=== PATIENT | male | born 1955 | race Caucasian/White ===

== ENCOUNTER → 2017-01-06 | Outpatient (CLI) | payer BC ==
--- NOTE | 2017-01-06 09:10 | US ---
EXAMINATION TYPE: US bladder DATE OF EXAM: 01/06/2017 COMPARISON: NONE CLINICAL HISTORY: 17-year-old male R39.12 poor stream of urine. Slow urine stream, frequent urination . TECHNIQUE: Multiple sonographic images of the bladder were obtained. FINDINGS: Bladder is initially urine distended. Both ureteral jets are visualized. Post Void Residual Volume: 44.5 mL IMPRESSION: Borderline elevated residual volume of 45 mL in the bladder after voiding.
--- NOTE | 2017-01-06 12:06 | US ---
EXAMINATION TYPE: US prostate transrectal DATE OF EXAM: 01/06/2017 COMPARISON: NONE CLINICAL HISTORY: R39.12 poor urinary stream. Slow urine stream, frequent urination This examination was performed using the transrectal probe. EXAM MEASUREMENTS: Gland Size: 5.3 x 3.7 x 5.2 Volume: 53.0 Predicted PSA: 6.36 Actual PSA (if available):PSA drawn on Friday01/03/17, results not back for ultrasound on 01/06/17, m ost recent PSA was 2.6 in August 2015 Enlarged heterogeneous gland without any definite lesions seen by ultrasound at this time Seminal vesicles are normal in size. Prostate gland is enlarged in size without suspicious hypoechoic nodules seen. IMPRESSION: Prostate gland is enlarged in size consistent with BPH, no worrisome hypoechoic nodule i s evident.
== END ==
LOC: RADUSMAIN 07:43
PROVIDERS: ATTEND Physician Assistant
DX: N40.0 Benign prostatic hyperplasia without lower urinary tract symptoms (principal); R39.12 Poor urinary stream
CPT/HCPCS: 76857; 76872

== ENCOUNTER → 2017-01-08 | Outpatient (CLI) | payer BC ==
--- NOTE | 2017-01-08 17:59 | PN ---
PROGRESS NOTE DATE OF SERVICE: 01/08/2017 A 61-year-old gentleman has [facility] of obstructive sleep apnea-hypopnea syndrome. Patient successfully continued to use his CPAP equipment every night without significant problems related to the mask pressure or humidity. His sleep schedule from around 10 to 10:30 p.m. until 5:30 am, which is about 7 hours and then he usually wakes up in the morning by himself without alarm and that is kind of sleep schedule, which he is using too. Sometimes he takes some naps in the middle of the day of the day. [place] Sleepiness Scale increased significantly to but that is possibly also related to the situation that the patient stopped working for the last year. Working less time and subsequently may take more naps than before. No episodes of hyperglycemia for the last year. No any recent episodes of cardiac arrhythmia. I checked his CPAP unit. CPAP pressure is 7, usage over the machine is every night for more than 4 hours. Average usage is 7.1 hour. MEDICATIONS: None. The weight is about the same as last year. Up to 1 pounds from 172 pounds up to 173 pounds today. PHYSICAL EXAM: Patient in no distress. BP 128/72, HR 63, RR 16, height 5 feet 9 inches and one half, weight 173.6, BMI 25.1, temperature 97.0. Oxygen saturation on room air 96%. Oropharynx low position of soft palate. Neck Supple, no JVD. Thyroid is not palpable. LUNGS Clear to percussion and to auscultation. Good air exchange. No wheezing or rhonchi. HEART S1, S2 regular. No murmurs, gallops, or rubs. ABDOMEN Soft and nontender. Bowel sounds are present. No organomegaly appreciated. EXTREMITIES No clubbing or cyanosis. 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 Cranial nerves 2 to 7 intact. There is no fasciculation or atrophy. noted. No focal deficits observed. IMPRESSION: 1. Obstructive sleep apnea-hypopnea syndrome. The patient demonstrated 100% compliance with treatment. No snoring on the machine, benefitting from treatment. 2. Excessive daytime sleepiness by [place] Sleepiness Scale. Patient sleeps around 7 hours per night. I believe it may not be enough for him. 3. Hyperlipidemia. 4. History of hyperglycemia in the past. No recent episodes. 5. History of bradycardia episodes in the past, not any recent episodes. PLAN: 1. Continue treatment with CPAP at the same pressure every night for the whole night. 2. Prescription for all necessary CPAP supplies. 3. Sleep hygiene with regular time bed for 8 hours which is 1 hour more than he is sleeping now at night. 4. No driving if feeling sleepiness. Thank you very much for allowing me to participate in the management of your patient. Sincerely, GIL / IJN: [id number] /
== END | disposition home or self-care (01) ==
LOC: SLEEP 15:55
PROVIDERS: ATTEND Internal Medicine
DX: G47.33 Obstructive sleep apnea (adult) (pediatric) (principal); G47.10 Hypersomnia, unspecified; E78.5 Hyperlipidemia, unspecified; Z86.79 Personal history of other diseases of the circulatory system; Z86.39 Personal history of other endocrine, nutritional and metabolic disease

== ENCOUNTER 2017-09-01 09:47 | Emergency (ER) | payer BC ==
[2017-09-01 10:03] VITALS: BP 164/103; PULSE 84; RESP 18; TEMP 98.2
[2017-09-01] MEDS ORDERED: LIDOCAINE 1% INJ 10MG/ML (20 ML MDV) SQ ONE (10:26)
--- NOTE | 2017-09-01 11:04 | ED ---
General Adult HPI - General Chief complaint: Wound/Laceration Stated complaint: thumb lac Time Seen by Provider: 09/01/17 10:10 Source: patient Mode of arrival: ambulatory Limitations: no limitations - History of Present Illness Initial comments: Patient is a 62-year-old male who presents with a chief complaint of a laceration to the left thumb. The patient states this happened a half hour prior to arrival when he accidentally cut his hand on a table saw. The patient states that his pain is about a 4. He is able to move his thumb and has intact sensation. The patient states he is up-to-date on his tetanus status, stating that he last received a tetanus shot for 5 years ago. The patient denies other medical problems. He has no other complaints at this time. - Related Data Previous Rx's Medication Instructions Recorded Amoxic-Pot Clav 875-125Mg 1 tab PO Q12HR #14 tablet 09/01/17 [Augmentin 875-125] Ibuprofen [Motrin] 800 mg PO TID PRN #20 tab 09/01/17 Allergies Allergy/AdvReac Type Severity Reaction Status Date / Time No Known Allergies Allergy Verified 09/01/17 10:10 Review of Systems ROS Statement: Those systems with pertinent positive or pertinent negative responses have been documented in the HPI. ROS Other: All systems not noted in ROS Statement are negative. Past Medical History Past Medical History: No Reported History History of Any Multi-Drug Resistant Organisms: None Reported Past Surgical History: No Surgical Hx Reported Past Psychological History: No Psychological Hx Reported Smoking Status: Never smoker Past Alcohol Use History: Occasional Past Drug Use History: None Reported General Exam Limitations: no limitations General appearance: alert, in no apparent distress Head exam: Present: atraumatic, normocephalic Eye exam: Present: normal appearance ENT exam: Present: mucous membranes moist Neck exam: Present: normal inspection Respiratory exam: Present: normal lung sounds bilaterally. Absent: respiratory distress, wheezes Cardiovascular Exam: Present: regular rate, normal rhythm GI/Abdominal exam: Present: soft. Absent: distended, tenderness Rectal exam: Present: deferred Extremities exam: Present: other (Patient has an abrasion to the medial aspect of his left thumb, there is a linear laceration on the pad of his left thumb. Bleeding is controlled at this time. Patient has intact strength and sensation of the thumb.) Back exam: Present: normal inspection Neurological exam: Present: alert, oriented X3 Psychiatric exam: Present: normal affect, normal mood Skin exam: Present: warm, dry, intact Course Vital Signs 09/01/17 10:00 Temperature 98.2 F Pulse Rate 84 Respiratory 18 Rate Blood Pressure 164/103 O2 Sat by Pulse 99 Oximetry Procedures - Laceration Laceration #1 Consent Obtained: verbal consent Time Out Performed: Yes Indication: laceration Site: hand Description: linear, flap, avulsion Depth: simple, single layer Anesthetic Used: lidocaine 1% Anesthesia Technique: nerve block Pre-repair: wound explored, irrigated extensively Type of Sutures: nylon Size of Sutures: 4-0 Number of Sutures: 3 Technique: simple, interrupted Patient Tolerated Procedure: well, no complications Additional Comments: wound loosely approximated with free flap open at tip of avulsion 2/2 loss of tissue. bleeding controlled, abx ointment applied, gelfoam applied, tube gauze applied. Medical Decision Making - Medical Decision Making Patient presents with a chief complaint of a laceration of the thumb. On initial evaluation, vital signs are stable, patient no acute distress. Patient to be evaluated with an x-ray of the hand. 12:25 PM X-rays show no involvement of the bone. Laceration was repaired per procedure note. Patient was given explicit signs and symptoms that should prompt return visit to the emergency department. He'll be placed on Augmentin and given orthopedic follow-up. Patient was instructed to leave the Gelfoam in place for 5 days, have stitches removed in 7 days. Patient verbalizes understanding of instructions. This time he is stable for discharge. Disposition Clinical Impression: Laceration Disposition: HOME SELF-CARE Condition: Good Is patient prescribed a controlled substance at d/c from ED?: No Referrals: Trevin Townsend DO [Primary Care Provider] - 1-2 days Raphael Valdivia MD [STAFF PHYSICIAN] - 1-2 days
[2017-09-01] MEDS ORDERED: GELATIN SPONGE,ABSORB (SMALL) 1 EACH SPONGE TOPICAL STA (11:31)
--- NOTE | 2017-09-01 11:35 | XR ---
EXAMINATION TYPE: XR hand limited LT DATE OF EXAM: 09/01/2017 CLINICAL HISTORY: Left distal thumb injury with a table saw. TECHNIQUE: Frontal, lateral and oblique images of the left hand are obtained. COMPARISON: None. FINDINGS: There is no acute fracture/dislocation evident in the left hand. Soft tissue defect and sw elling are seen at the ulnar aspect of the distal first phalanx without radiopaque foreign body or un derlying osseous fracture. The joint spaces in the left hand demonstrate moderate arthropathy with sm all marginal osteophytes of the first metacarpal phalangeal joint and distal interphalangeal joints a s well as the first carpometacarpal joint in addition to sclerosis and joint space narrowing. IMPRESSION: There is no acute fracture or dislocation in the left hand. Soft tissue swelling and foc al laceration of the distal first digit without radiopaque foreign body or underlying fracture.
== END 2017-09-01 13:08 | disposition home or self-care (01) ==
LOC: EC 09:47
DX: S61.012A Laceration without foreign body of left thumb without damage to nail, initial encounter (principal); W31.2XXA Contact with powered woodworking and forming machines, initial encounter; Y92.009 Unspecified place in unspecified non-institutional (private) residence as the place of occurrence of the external cause
CPT/HCPCS: 73120; 99283; 12001; J2001

== ENCOUNTER 2017-11-04 16:28 | Observation (INO) | payer BC ==
[2017-11-04] MEDS ORDERED: NITROGLYCERIN OINT 1 INCH/GM PACKET TOPICAL STA (17:16)
[2017-11-04] MEDS ORDERED: ASPIRIN 81 MG PO STA (17:16)
[2017-11-04 17:52] LABS: Basophils % (A) 1 %; Eosinophils # (A) 0.3 k/uL (0-0.7); Eosinophils % (A) 4 %; HCT 42.9 % (39.0-53.0); HGB 14.7 gm/dL (13.0-17.5); Lymphocytes # (A) 1.8 k/uL (1.0-4.8); Lymphocytes % (A) 23 %; MCH 30.9 pg (25.0-35.0); MCHC 34.2 g/dL (31.0-37.0); MCV 90.2 fL (80.0-100.0); Mean Platelet Volume 6.1; Monocytes # (A) 0.3 k/uL (0-1.0); Monocytes % (A) 4 %; Neutrophils # (A) 5.2 k/uL (1.3-7.7); Neutrophils % (A) 66 %; Platelet Count 223 k/uL (150-450); RBC 4.76 m/uL (4.30-5.90); RDW 12.5 % (11.5-15.5); WBC 7.8 k/uL (3.8-10.6)
[2017-11-04 18:00] LABS: ALT 39 U/L (21-72); AST 34 U/L (17-59); Albumin 4.6 g/dL (3.5-5.0); Alkaline Phosphatase 73 U/L (38-126); Anion Gap 11 mmol/L; Blood Urea Nitrogen 23 mg/dL (9-20); Calcium 9.6 mg/dL (8.4-10.2); Carbon Dioxide 24 mmol/L (22-30); Chloride 106 mmol/L (98-107); Glucose 85 mg/dL (74-99); Magnesium 2.1 mg/dL (1.6-2.3); Partial Thromboplastin Time 24.5 sec (22.0-30.0); Potassium 4.7 mmol/L (3.5-5.1); Sodium 141 mmol/L (137-145); Total Bilirubin 0.5 mg/dL (0.2-1.3); Total Protein 7.2 g/dL (6.3-8.2)
[2017-11-04 18:03] LABS: Creatine Kinase 126 U/L (55-170)
[2017-11-04 18:16] LABS: Creatine Kinase MB 1.6 ng/mL (0.0-2.4); Troponin I <0.012 ng/mL (0.000-0.034)
--- NOTE | 2017-11-04 19:03 | XR ---
EXAMINATION: XR chest 2V DATE AND TIME: 11/04/2017 6:54 PM ORDERING PROVIDER: Billy Sykes MD CLINICAL INDICATION: Chest Pain TECHNIQUE: PA and lateral COMPARISON: None. DESCRIPTION: The lungs are clear. The pleural spaces are negative. The cardiac silhouette is not enlarged. The mediastinal and pleural silhouettes are unremarkable. The skeletal structures are intact without focal findings. The soft tissues are unremarkable. IMPRESSION: NO ACUTE PROCESS.
--- NOTE | 2017-11-04 19:12 | ED ---
Chest Pain HPI - General Chief Complaint: Chest Pain Stated Complaint: abn EKG Time Seen by Provider: 11/04/17 16:53 Source: patient Mode of arrival: ambulatory Limitations: no limitations - History of Present Illness Initial Comments: 62 years old male [facility] to the hospital for admission. His clearing ruiz today he developed chest pain he presents the chest pain went away then he went back to splitting wood again chest pain came back at that point his family took him to the [facility] she has no history of heart disease in the past and he denies any chest pain now denies any shortness of breath is chest pain-free and has no diabetes, hypertension or cerebral family history of heart disease review of system is unremarkable - Related Data Home Medications Medication Instructions Recorded Confirmed Aspirin 325 mg PO ONCE PRN 11/04/17 11/04/17 Allergies Allergy/AdvReac Type Severity Reaction Status Date / Time No Known Allergies Allergy Verified 11/04/17 17:48 Review of Systems ROS Statement: Those systems with pertinent positive or pertinent negative responses have been documented in the HPI. ROS Other: All systems not noted in ROS Statement are negative. EKG Findings - EKG Comments: EKG Findings:: EKG is sinus bradycardia ventricular rate is 54 PA interval is 184 QRS duration is 120 QT/QTc is 448/424 review of this EKG does not reveal any ST elevation or ST depression Past Medical History Past Medical History: No Reported History History of Any Multi-Drug Resistant Organisms: None Reported Past Surgical History: Orthopedic Surgery Past Psychological History: No Psychological Hx Reported Smoking Status: Never smoker Past Alcohol Use History: Occasional Past Drug Use History: None Reported General Exam - General Exam Comments Initial Comments: General: The patient is awake and alert, in no distress, and does not appear acutely ill. Skin: Skin is warm and dry and no rashes or lesions are noted. Eye: Pupils are equal, round and reactive to light, extra-ocular movements are intact; there is normal conjunctiva bilaterally. Ears, nose, mouth and throat: There are moist mucous membranes and no oral lesions. Neck: The neck is supple, there is no tenderness or JVD. Cardiovascular: There is a regular rate and rhythm. No murmur, rub or gallop is appreciated. Respiratory: To auscultation bilateral, no wheezing no rhonchi no distress respiratory davies noticed Gastrointestinal: Soft, non-distended, non-tender abdomen without masses or organomegaly noted. There is no rebound or guarding present. Bowel sounds are unremarkable. Back: There is no tenderness to palpation in the midline. There is no obvious deformity. Musculoskeletal: Normal ROM, no tenderness, There is no pedal edema. There is no calf tenderness or swelling. No cords were appreciated. Neurological: CN II-XII intact, Cranial nerves III through XII are intact. There are no obvious motor or sensory deficits. Coordination appears grossly intact. Speech is normal. Psychiatric: Cooperative, appropriate mood & affect, normal judgment. Limitations: no limitations Course Vital Signs 11/04/17 11/04/17 11/04/17 16:54 17:56 18:10 Temperature 97.3 F L Pulse Rate 60 64 60 Respiratory 18 18 18 Rate Blood Pressure 154/85 169/82 136/93 O2 Sat by Pulse 98 97 99 Oximetry This EKG, CBC, comp his metabolic panel, troponin are unremarkable. Definitely has angina he needed to be admitted with a cardiology consult Disposition Clinical Impression: Chest pain Disposition: ADMITTED IP TO THIS HOSP Condition: Good Referrals: Trevin Townsend DO [Primary Care Provider] - 1-2 days
[2017-11-04] MEDS ORDERED: MORPHINE SULFATE 2 MG/ML SYRINGE IVP PRN (19:13)
[2017-11-04] MEDS ORDERED: ACETAMINOPHEN TAB 325 MG TAB PO PRN (19:13)
[2017-11-04] MEDS ORDERED: NITROGLYCERIN SL TABS 0.4 MG TAB SUBLINGUAL PRN (19:13)
[2017-11-04] MEDS ORDERED: HEPARIN SODIUM,PORCINE 5,000 UNIT/ML 1 ML VIAL IV ONE (19:13)
[2017-11-04] MEDS ORDERED: HEPARIN SOD,PORK IN 0.45% NACL 25,000 UNIT in 0.45% NACL 1 500ML.BAG IV SCH (19:15)
[2017-11-04 23:48] LABS: Creatine Kinase 113 U/L (55-170)
[2017-11-05 00:02] LABS: Creatine Kinase MB 1.5 ng/mL (0.0-2.4); Troponin I <0.012 ng/mL (0.000-0.034)
[2017-11-05 02:40] LABS: Cholesterol 240 mg/dL (<200); HDL Cholesterol 41 mg/dL (40-60); LDL Cholesterol,Calculated 159 mg/dL (0-99); Triglycerides 198 mg/dL (<150)
[2017-11-05 06:37] LABS: Creatine Kinase 96 U/L (55-170)
[2017-11-05 06:49] LABS: Creatine Kinase MB 1.5 ng/mL (0.0-2.4); Troponin I <0.012 ng/mL (0.000-0.034)
--- NOTE | 2017-11-05 07:52 | P.CRDCN ---
History of Present Illness Consult date: 11/05/17 Chief complaint: Chest discomfort History of present illness: This is a pleasant 62-year-old gentleman with no significant past medical history of coronary artery disease or diabetes or hypertension or dyslipidemia was referred directly to the emergency room yesterday because of chest discomfort. The patient came in to see me in the office as an outpatient for new onset chest discomfort. He was in his usual state of health until yesterday when he was doing some work in his backyard and he started experiencing discomfort in the mid of the chest as a sharp kind of discomfort without any radiation to the arm or neck or shoulders but it was associated with sweating. No shortness of breath. No dizziness or lightheadedness. And no syncope. He stopped working and the pain did go away. After he started working again the pain started pulling up again on him. Then he stopped working and the pain didn't go away. H episode of discomfort lasted about 10 minutes only. Because of that he called his primary care physician who saw the patient and perform an EKG which showed sinus rhythm was RBBB and the patient was referred to see me because of that. He was ruled out for acute coronary event. The EKG continues to show sinus rhythm without any ischemic ST or T-wave abnormalities. The chest x-ray did not show any acute abnormalities as well. The patient continues to be pain- free during his hospitalization. Past Medical History Past Medical History: Prostate Disorder History of Any Multi-Drug Resistant Organisms: None Reported Past Surgical History: Orthopedic Surgery Additional Past Surgical History / Comment(s): torn menicus in left knee - dr mason several years ago Past Anesthesia/Blood Transfusion Reactions: No Reported Reaction Past Psychological History: No Psychological Hx Reported Smoking Status: Never smoker Past Alcohol Use History: Occasional Past Drug Use History: None Reported - Past Family History Father Family Medical History: Myocardial Infarction (MS) Brother(s) Family Medical History: Coronary Artery Disease (CAD) Additional Family Medical History / Comment(s): 4 stents Medications and Allergies Home Medications Medication Instructions Recorded Confirmed Type Aspirin 325 mg PO ONCE PRN 11/04/17 11/04/17 History Allergies Allergy/AdvReac Type Severity Reaction Status Date / Time No Known Allergies Allergy Verified 11/04/17 17:48 Physical Exam Vitals: Vital Signs Temp Pulse Pulse Resp BP BP Pulse Ox 11/05/17 04:00 51 L 16 08/08/18 03:42 97.5 F L 56 L 16 122/53 98 11/04/17 22:44 55 L 16 11/04/17 22:27 97.8 F 53 L 16 141/90 97 11/04/17 21:43 97.9 F 72 18 137/91 99 11/04/17 19:08 97.2 F L 53 L 18 150/93 97 11/04/17 18:10 60 18 136/93 99 11/04/17 17:56 64 18 169/82 97 11/04/17 16:54 97.3 F L 60 18 154/85 98 Intake and Output 11/04/17 11/05/17 11/05/17 22:59 06:59 14:59 Other: Voiding Method Toilet Toilet # Voids 3 Weight 77.111 kg - Constitutional General appearance: no acute distress - Respiratory Respiratory: bilateral: CTA - Cardiovascular Rhythm: regular Heart sounds: normal: S1, S2 Results 11/04/17 17:35 11/04/17 17:35 Cardiac Enzymes 11/04/17 11/04/17 11/04/17 Range/Units 17:35 17:35 23:12 AST 34 (17-59) U/L CK-MB (CK-2) 1.6 1.5 (0.0-2.4) ng/mL Troponin I <0.012 <0.012 (0.000-0.034) ng/mL 11/05/17 Range/Units 05:35 AST (17-59) U/L CK-MB (CK-2) 1.5 (0.0-2.4) ng/mL Troponin I <0.012 (0.000-0.034) ng/mL Coagulation 11/04/17 11/04/17 11/05/17 Range/Units 17:35 23:12 05:35 PT 10.0 (9.0-12.0) sec APTT 24.5 76.1 H 62.6 H (22.0-30.0) sec Lipids 11/04/17 Range/Units 17:35 Triglycerides 198 H (<150) mg/dL Cholesterol 240 H (<200) mg/dL HDL Cholesterol 41 (40-60) mg/dL CBC 11/04/17 Range/Units 17:35 WBC 7.8 (3.8-10.6) k/uL RBC 4.76 (4.30-5.90) m/uL Hgb 14.7 (13.0-17.5) gm/dL Hct 42.9 (39.0-53.0) % Plt Count 223 (150-450) k/uL Comprehensive Metabolic Panel 11/04/17 Range/Units 17:35 Sodium 141 (137-145) mmol/L Potassium 4.7 (3.5-5.1) mmol/L Chloride 106 (98-107) mmol/L Carbon Dioxide 24 (22-30) mmol/L BUN 23 H (9-20) mg/dL Creatinine 0.90 (0.66-1.25) mg/dL Glucose 85 (74-99) mg/dL Calcium 9.6 (8.4-10.2) mg/dL AST 34 (17-59) U/L ALT 39 (21-72) U/L Alkaline Phosphatase 73 (38-126) U/L Total Protein 7.2 (6.3-8.2) g/dL Albumin 4.6 (3.5-5.0) g/dL Current Medications Generic Name Dose Route Start Last Admin Trade Name Freq PRN Reason Stop Dose Admin Acetaminophen 650 mg 11/04/17 19:13 Tylenol Tab PO Q4HR PRN Pain Aspirin 325 mg 11/05/17 09:00 Aspirin PO DAILY JIMMY Heparin Sodium/Sodium Chloride 500 mls @ 18.5 mls/hr 11/04/17 19:15 11/04/17 20:09 25,000 unit/ Sodium Chloride IV 12 units/kg/hr .Q24H JIMMY 18.5 mls/hr Administration Protocol 12 UNITS/KG/HR Morphine Sulfate 2 mg 11/04/17 19:13 Morphine Sulfate (Inj) IVP Q5M PRN Chest Pain Nitroglycerin 0.4 mg 11/04/17 19:13 Nitrostat SUBLINGUAL Q5M PRN Chest Pain Intake and Output 11/04/17 11/05/17 11/05/17 22:59 06:59 14:59 Other: Voiding Method Toilet Toilet # Voids 3 Weight 77.111 kg 11/04/17 17:35 11/04/17 17:35 Assessment and Plan Assessment: Assessment #1 chest discomfort #2 significant family history of CAD Plan #1 the patient was ruled out for acute coronary event #2 I am scheduling the patient to undergo a stress test later on today. Further recommendation to follow that. We'll continue following up with him
[2017-11-05 07:55] VITALS: RESP 18
[2017-11-05] MEDS ORDERED: ASPIRIN 325 MG TAB PO SCH (09:00)
--- NOTE | 2017-11-05 10:25 | NM ---
EXAMINATION TYPE: NM stress cardiolite complete DATE OF EXAM: 11/05/2017 COMPARISON: NONE HISTORY: 62-year-old male with chest pain and palpitations. TECHNIQUE: After the intravenous administration of 10.14 mCi Tc 99m Sestamibi - Rest images obtained 45 minutes post injection. The patient exercised using a SELVIN protocol and 1 minute prior to peak exercise was injected with 26.9 mCi Tc 99m Sestamibi - Stress images obtained 30 minutes post inject ion. FINDINGS: Targeted heart rate was achieved during performance of the study (patient reached 138 BPM with target heart rate being 135 BPM). The technologist notes that the patient experienced shortness of breath b ut no chest pain. Review of stress and rest SPECT images demonstrates decreased perfusion along the inferior wall with areas accentuated on the rest images, likely secondary to diaphragmatic attenuation. Otherwise, no di stinct perfusion abnormality. Gated analysis shows normal wall motion with an estimated left ventric ular ejection fraction of 67 %. TID is normal at 0.63. IMPRESSION: Decreased perfusion along the inferior wall is greater on rest imaging suggesting prominent diaphragm atic attenuation. No convincing scintigraphic evidence for reversible ischemia
[2017-11-05 12:32] VITALS: BP 119/74; PULSE 69; TEMP 97.7
--- NOTE | 2017-11-05 13:16 | EST ---
EXERCISE STRESS DATE OF SERVICE: 11/05/2017 AGE: 62 SEX: Male HT: 69" WT: 170 pounds PROTOCOL: CARDIOLITE SELVIN STAGE: ii DURATION OF EXERCISE: 6 minutes HEART RATE REST: 66 BLOOD PRESSURE REST: 120/86 MAXIMUM HEART RATE ACHIEVED: 138 MAXIMUM BLOOD PRESSURE: 170/59 85% MPHR: 135 100% MPHR: 159 METS: 7.3 INDICATIONS: Chest pain. CLINICAL INFORMATION: STRESS DATA: Pretesting physical examination showed a heart rate of 66, pressure is 120/86 mmHg. Baseline EKG showed sinus mechanism. The patient exercised on the treadmill according to Selvin protocol for a total of 6 minutes and achieved 7.3 METs. The max heart rate was 138, which is about 86% of maximum predicted heart rate. Maximum blood pressure was 170/59 mmHg. Clinically the patient did not have any symptoms of chest pain or discomfort and the EKG did not show any significant ST or T- wave abnormalities concerning for ischemia. CONCLUSION: 1. Excellent exercise tolerance. 2. Normal EKG in response to exercise. 3. Please follow up on the Cardiolite portion on separate report. MMODL / IJN: [id number] /
--- NOTE | 2017-11-05 14:40 | HP ---
HISTORY AND PHYSICAL DATE OF ADMISSION: 11/04/17 DATE OF SERVICE: 11/05/17 PRESENTING COMPLAINT: Chest pain. HISTORY OF PRESENTING COMPLAINT: A very pleasant 62-year-old patient of Dr. Townsend, rather in good health, rather active, was cutting wood with a chain saw weighing about 20 pounds. He did this activity for about 45 minutes. During the process he developed sharp central chest pain, sharp in nature, stabbing, lasted about 5 minutes and he had to take a break. Then after some time when he started doing it again, he got a second episode. Again sharp pain in the middle of the chest that lasted for longer time. The patient felt a bit short of breath, break out in a sweat. Did not feel tired. No dizziness or lightheadedness. Symptoms lasted for a good 10 to 15 minutes. He decided to stop cutting wood and decided to come in and was admitted with a diagnosis of unstable angina. Denies any cardiac risk factors, admitted for the same. The patient is otherwise rather active. REVIEW OF SYSTEMS: CONSTITUTIONAL: None. HEENT: None. RESPIRATORY: None. CARDIOVASCULAR: As above. GASTROINTESTINAL: None. GENITOURINARY: None. MUSCULOSKELETAL: As above. DERMATOLOGICAL, HEMATOLOGIC, LYMPHATIC: None. PSYCHIATRY: None. NEUROLOGICAL: None. PAST MEDICAL HISTORY: BPH. PAST SURGICAL HISTORY: Torn meniscus, left knee. SOCIAL HISTORY: Does not smoke. Alcohol occasionally. 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 Lives with . FAMILY HISTORY: Coronary artery disease, four stents. HOME MEDICATIONS: Aspirin p.r.n. ALLERGIES: None. PHYSICAL EXAMINATION: Temperature 98.1, pulse 47, respiratory 18, blood pressure 102/66, pulse ox 99% on room air. GENERAL APPEARANCE: Average build, lying in bed, comfortable. EYES: Pupils equal. Conjunctivae normal. HEENT: External appearance of nose and ears normal. Oral cavity normal. NECK: JVD not raised. Mass not palpable. RESPIRATORY: Effort normal. Lungs are clear. CARDIOVASCULAR: First and second sounds, no edema. ABDOMEN: Soft, nontender. Liver and spleen not palpable. LYMPHATIC: No lymph node palpable in neck or axillae. PSYCHIATRY: Alert and oriented x3. Mood and affect normal. NEUROLOGICAL: Pupils equal. Cranial nerves grossly intact. Power and sensation grossly intact. MUSCULOSKELETAL: Minimal reproducible pain in the sternum and patient's sternum has got excavation that is pectus excavatum. INVESTIGATIONS: Lab and x-rays were reviewed in the context of assessment and plan. White count 7.8, hemoglobin 14.7, potassium 4.7, BUN 20, creatinine 0.9. Troponin x3 0.012. LDL is 159. Chest x-ray film was interpreted by me; shows cardiomegaly, some nonspecific findings. EKG tracing interpreted by me shows normal sinus rhythm. ASSESSMENT: 1. Anterior chest wall pain in a patient who was using a chain saw. It was sharp pain, need to consider cardiac cause though this clearly could be musculoskeletal from costochondritis. The patient had some adjoining symptoms including short of breath with perspiration and also has a positive family history. 2. Pectus excavatum. This may cause the heart to look enlarged on a chest x-ray. 3. Benign prostatic hypertrophy. The patient is not on any medications. 4. Sinus bradycardia in a patient who is physiologically active. PLAN: Cardiology was consulted. Aspirin was started. They have ordered a stress test. MMODL / IJN: [id number] /
--- NOTE | 2017-11-06 06:59 | DS ---
DISCHARGE SUMMARY DATE OF ADMISSION: 11/04/17 DATE OF DISCHARGE: 11/05/17. FINAL DIAGNOSES: 1. Anterior chest wall pain probably musculoskeletal from costochondritis. 2. Pectus excavatum. 3. Benign prostatic hypertrophy. Patient not taking any medication. 4. Sinus bradycardia from physiological good health. HOSPITAL COURSE: This patient presented with chest pain, sharp in nature with physical activity. The patient did undergo a Cardiolite stress test. Seen by Dr. Jain. [place] it was not suggestive of ischemia. Hence, patient is being discharged. On exam, lungs are clear. Cardiovascular: 1st and 2nd sounds normal with pectus excavatum. On examination: Temperature 97.7, pulse 47, blood pressure 109/74. Lungs: Fair entry. Cardiovascular: 1st and 2nd sounds normal. DISCHARGE MEDICATIONS: 1. Aspirin 81 mg a day. 2. Lipitor 20 mg a day. Follow with Dr. Townsend in 1 week, follow with Dr. Jain on 11/01/17. Discussion and discharge planning more than 35 minutes. MMODL / IJN: [id number] /
== END 2017-11-05 14:44 | disposition home or self-care (01) ==
LOC: EC 16:28 → 3OBS 19:13
PROVIDERS: ADMIT Hospitalist; ATTEND Hospitalist
DX: R07.89 Other chest pain (principal); R61 Generalized hyperhidrosis; R06.02 Shortness of breath; N40.0 Benign prostatic hyperplasia without lower urinary tract symptoms; Q67.6 Pectus excavatum; R00.1 Bradycardia, unspecified; Z82.49 Family history of ischemic heart disease and other diseases of the circulatory system
CPT/HCPCS: 99285 ×2; 96365 ×2; 96366 ×5; 96376 ×2; 36415; 93005; 93017; 80061; 80053; 82550 ×2; 82553 ×2; 83735; 84484 ×2; 85025; 85610; 85730 ×2; 71046; 78452; G0378 ×2; A9500; J1644 ×2

== ENCOUNTER → 2018-10-22 | Outpatient (CLI) | payer OTHER ==
--- NOTE | 2018-10-22 12:40 | SFUN ---
SLEEP CENTER FOLLOW UP NOTE DATE OF SERVICE: 10/22/2018 A 63-year-old gentleman had been followed in Sleep Center for treatment of obstructive sleep apnea-hypopnea syndrome. Patient successfully continuing to use his CPAP equipment every night for the whole night. His mask is old, needs to be replaced. Sometimes has snoring with the machine, but I believe that related to the necessity to replace the mask. [place] Sleepiness Scale today is 6, which is normal. I checked patient's CPAP unit. CPAP pressure is 7 cm of water usage 29 out of 30 nights for more than 4 hours every 6.4 hours which is normal compliance. MEDICATIONS: Simvastatin. PHYSICAL EXAMINATION: During physical exam, patient in no distress. VITAL SIGNS: BP 115/78, HR 60, RR 16, height 5 feet 9 inches, weight 164 pounds, body mass index was 24.2, temperature 98.0, oxygen saturation on room air 98%. HEENT: PERRLA, EOMI. Oropharynx extremely low position of soft palate. Mallampati 4. NECK: Supple, no JVD. Thyroid is not palpable. LUNGS: Clear to percussion and to auscultation. Good air exchange. No wheezing or rhonchi. HEART: S1, S2 regular. No murmurs, gallops, or rubs. ABDOMEN: Soft and nontender. Bowel sounds are present. No organomegaly appreciated. EXTREMITIES: No clubbing or cyanosis. DUST SAMPLER: Awake, alert, and oriented X3. Cranial nerves 2 to 7 intact. There is no fasciculation or atrophy. noted. No focal deficits observed. IMPRESSION: 1. Obstructive sleep apnea-hypopnea syndrome. Patient demonstrated great compliance with treatment benefitting from treatment. 2. Hyperlipidemia. 3. History of PVCs. 4. History of hypoglycemia in the past. No recent episode. PLAN: 1. Prescription for all necessary CPAP supplies including full-face mask, heated tube, filters. 2. Patient to continue to use CPAP equipment every night for the whole night. 3. Watching weight. 4. Sleep hygiene with regular time in bed for at least 7-1/2 hours. 5. No driving if feeling sleepiness. 6. Followup visit in 1 year or earlier if patient has any problems. Thank you very much for allowing me to participate in management of your patient. Sincerely, Miguel Gonzalez MD, PhD, FAASM Diplomat of [place] Board of Medical Specialties [place] Board of Internal Medicine Safety Glass Installer of [facility] [place] MMSAVANAH / PATN: [id number] /
== END | disposition home or self-care (01) ==
LOC: SLEEP 10:36
PROVIDERS: ATTEND Internal Medicine
DX: G47.33 Obstructive sleep apnea (adult) (pediatric) (principal); E78.5 Hyperlipidemia, unspecified; Z86.79 Personal history of other diseases of the circulatory system; Z86.39 Personal history of other endocrine, nutritional and metabolic disease; Z79.899 Other long term (current) drug therapy; Z99.89 Dependence on other enabling machines and devices

== ENCOUNTER → 2019-09-16 | Outpatient (CLI) | payer OTHER ==
--- NOTE | 2019-09-16 17:44 | SFUN ---
SLEEP CENTER FOLLOW UP NOTE DATE OF SERVICE: 09/16/2019 This patient is a 64-year-old gentleman who has been followed in Sleep Center for treatment of obstructive sleep apnea-hypopnea syndrome. Patient is successfully continuing to use his CPAP equipment every night for the whole night. Occasionally he has very mild snoring, according to his . He sleeps well. [place] Sleepiness Scale is 8. I checked his CPAP unit. CPAP pressure is 6 cm of water. Usage is 27/30 nights for more than 4 hours. Average usage is 7.5 hours per night. His machine does not have information about apnea-hypopnea index. MEDICATIONS: Simvastatin. PHYSICAL EXAMINATION: GENERAL: A pleasant patient in no distress. VITAL SIGNS: BP 121/83, HR 88, RR 16, height 5 feet 9-1/2 inches, weight 174, body mass index 25.3, temperature 97.9, oxygen saturation at room air 96%. HEENT: PERRLA, EOMI. Evaluation of oropharynx showed tongue protrudes midline. Extremely low position of soft palate. Mallampati IV. NECK: Supple. No JVD. Thyroid is not palpable. LUNGS: Clear to percussion and to auscultation. Good air exchange. No wheezing or rhonchi. HEART: S1, S2 regular. No murmurs, gallops or rubs. ABDOMEN: Soft and nontender. Bowel sounds are present. No organomegaly. EXTREMITIES: No clubbing or cyanosis. MANUFACTURING MANAGER: Awake, alert, and oriented X3. Cranial nerves 2 to 7 intact. There is no fasciculation or atrophy. noted. No focal deficits observed. IMPRESSION: 1. Obstructive sleep apnea-hypopnea syndrome. The patient demonstrated good compliance with treatment, benefitting from treatment. 2. Hyperlipidemia. 3. History of premature ventricular contractions in the past. 4. History of hyperglycemia in the past. PLAN: 1. Patient will continue to use CPAP equipment every night for the whole night. 2. Prescription for all CPAP supplies, including Quattro Air medium-sized full-face mask, tube, filters. 3. Watching weight. 4. Sleep hygiene with regular time in bed for at least 7-1/2 hours. 5. No driving if feeling any sleepiness. Thank you very much for allowing me to participate in the management of your patient. Sincerely, Miguel Gonzalez MD, PhD, FAASM Diplomat of [place] [employer] of Medical Specialties [place] Board of Internal Medicine Academic Affairs Vice President of [facility] [place] MMSAVANAH / MARCY: [id number] /
== END | disposition home or self-care (01) ==
LOC: SLEEP 10:09
PROVIDERS: ATTEND Internal Medicine
DX: G47.33 Obstructive sleep apnea (adult) (pediatric) (principal); E78.5 Hyperlipidemia, unspecified; Z86.79 Personal history of other diseases of the circulatory system; Z86.39 Personal history of other endocrine, nutritional and metabolic disease; Z79.899 Other long term (current) drug therapy

== ENCOUNTER → 2020-09-14 | Outpatient (CLI) | payer OTHER ==
--- NOTE | 2020-09-14 23:15 | SFUN ---
SLEEP CENTER FOLLOW UP NOTE DATE OF SERVICE: 09/14/2020 65-year-old gentleman has been followed in the Sleep Center for treatment of obstructive sleep apnea-hypopnea syndrome. The last time I saw patient over 1 year ago, he continued to use his equipment every night for the whole night. Recently developed some problems related to the collection of water in the tube. [place] Sleepiness Scale today slightly increased to 11. The patient has episodes of occasional snoring. I checked CPAP unit. CPAP pressure is 6 cm of water. Usage is 100% of nights. Average 7.6 hours per night. Machine does not have information about apnea-hypopnea index and CPAP pressure is 6 cm of water. MEDICATIONS: Lipitor 20 mg once a day. PHYSICAL EXAMINATION: GENERAL: Patient in no distress. VITAL SIGNS: BP 126/79, HR 60, RR 14, height 5 feet 9 inches and one third, weight 171.8. Body mass index 25.0, temperature 96.1, oxygen saturation at room air 97%. Oropharynx: Extremely low position of soft palate. Mallampati 4. NECK: Supple, no JVD. Thyroid is not palpable. LUNGS: Clear to percussion and to auscultation. Good air exchange. No wheezing or rhonchi. HEART: S1, S2 regular. No murmurs, gallops, or rubs. ABDOMEN: Soft and nontender. Bowel sounds are present. No organomegaly appreciated. EXTREMITIES: No clubbing or cyanosis. ELECTRIC CUTTER OPERATOR: Awake, alert, and oriented X3. Cranial nerves 2 to 7 intact. There is no fasciculation or atrophy. noted. No focal deficits observed. IMPRESSION: 1. Obstructive sleep apnea-hypopnea syndrome. Patient demonstrated 100% compliance with treatment. Occasional snoring with the machine. Machine does not have information about apnea-hypopnea index. 2. Hyperlipidemia. 3. History of PVCs in the past. 4. History of hyperglycemia in the past. PLAN: 1. I increased pressure in CPAP unit to 7.4 cm of water. 2. Heated hose was not correctly connected with the CPAP unit. I explained to the patient how to connect it and subsequently after that, hose will be heated and prevent any condensation of water inside of the hose. Average person sometimes indicate which patient sometimes indicates. 3. Patient will continue to use PAP equipment every night for the whole night. 4. Sleep hygiene with regular time in bed for at least 7-1/2 to 8 hours. 5. Precautions related to driving. No driving if feeling sleepiness. 6. I will maintain all necessary prescription for PAP supplies including mask, tube, filters. 7. Watching weight. 8. Follow-up visit in 6 months or earlier if patient has any problems. Thank you very much for allowing me to participate in management of your patient. Sincerely, Miguel Gonzalez MD, PhD, FAASM Diplomat of [place] Board of Medical Specialties [place] Board of Internal Medicine Coiler of [facility] [place] MMODL / IJN: [id number] /
== END ==
LOC: SLEEP 09:43
PROVIDERS: ATTEND Internal Medicine
DX: G47.33 Obstructive sleep apnea (adult) (pediatric) (principal); E78.5 Hyperlipidemia, unspecified; Z86.79 Personal history of other diseases of the circulatory system; Z86.39 Personal history of other endocrine, nutritional and metabolic disease; Z99.89 Dependence on other enabling machines and devices

== ENCOUNTER → 2021-10-11 | Outpatient (CLI) | payer MEDICARE, OTHER ==
--- NOTE | 2021-10-11 14:42 | P.PN ---
Subjective DATE: 10/11/2021 FOLLOW UP VISIT. Patient with obstructive sleep apnea hypopnea syndrome return to sleep center for follow-up visit. Information from previous visit have been reviewed. Patient is using PAP equipment every night for the whole night, getting PAP supplies in time. The patient does not have significant problems with the mask, PAP unit and humidification. [place] sleepiness scale is increased to 17. I checked PAP unit. Pap unit is old, no information about apnea-hypopnea index. PAP unit pressure 7.4 cm H2O. Usage is 100 % for more then 4 hours, average 6.8 hours per night. MEDICATIONS:1. Lipitor 40 mg once a day During physical exam: GENERAL: A pleasant patient without any distress. VITAL SIGNS: BP 113/80, HR 57, RR 16 , weight 168.6, temperature 97, oxygen saturation at room air 97 % . HEENT: PERRLA, EOMI.low position of soft palate, Mallapati 4 . NECK: Supple. No JVD. LUNGS: Clear to percussion and to auscultation. Good air exchange. No wheezing or rhonchi. HEART: S1, S2 regular. ABDOMEN: Soft and nontender.[] EXTREMITIES: No clubbing or cyanosis. KNIFE OPERATOR: Awake, alert, and oriented x3. No focal deficit. Impressions: 1. Obstructive sleep apnea-hypopnea syndrome. Patient demonstrated great compliance with treatment, benefiting from treatment. CPAP unit is old, does not have information about apnea-hypopnea index. 2. History of PVCs. 3. History of hyperglycemia in the past. 4. Hyperlipidemia. Plan: 1. Continue using PAP equipment every night for the whole night. Prescription was written to replace CPAP unit to Auto PAP with range of pressure 5-10 cm of water. 2. To change air filter at least 1-2 times per month. 3. PAP unit should stay lower then position of the head. 4. Advised patient to remove all remaining water from humidifier canister daily and make it dry after each usage. Refill canister with fresh distilled water before each usage. 5. Sleep hygiene with regular time in bed for at least 8 hours. 6. Precautions related to driving. No driving if feel any sleepiness. 7. I will maintain prescription for PAP supplies including mask, tube, filters. 8. Follow up visit in 3090 days after getting new CPAP unit to evaluate clinical response on treatment, compliance with treatment and check apnea- hypopnea index .s. Thank you very much for allowing me to participate in the management of your patient. Miguel Gonzalez MD, PhD, FAASM. Diplomat of [place] Board of Sleep Medicine, Sleep Medicine Board by [place] Board of Internal Medicine Chiller Hand of [facility] [place]
== END ==
LOC: SLEEP 13:43
PROVIDERS: ATTEND Internal Medicine
DX: G47.33 Obstructive sleep apnea (adult) (pediatric) (principal); Z99.89 Dependence on other enabling machines and devices; E78.5 Hyperlipidemia, unspecified; Z86.39 Personal history of other endocrine, nutritional and metabolic disease

== ENCOUNTER → 2022-10-10 | Outpatient (CLI) | payer MEDICARE, OTHER ==
--- NOTE | 2022-10-10 11:24 | P.PN ---
Subjective DATE: 10/10/2022 FOLLOW UP VISIT. Patient with obstructive sleep apnea hypopnea syndrome return to sleep center for follow-up visit. Information from previous visit have been reviewed. Patient supposed to replace his CPAP unit, but for different reasons she still using his old CPAP unit and snore while using CPAP according to his . Patient is using PAP equipment every night for the whole night, getting PAP supplies in time. The patient does not have significant problems with the mask, PAP unit and humidification. [place] sleepiness scale is 18, which indicates significant sleepiness. I checked information from PAP unit. PAP unit pressure 7.4 cm H2O. Usage is 100 % for more then 4 hours, average 6.8 hours per night. CPAP unit doesn't have information about apnea-hypopnea index for leak. Unit is old, motor life expectancy was exceeded. MEDICATIONS:1. Lipitor 2. Medication for BPH, patient doesn't remember the name. During physical exam: GENERAL: A pleasant patient without any distress. VITAL SIGNS: BP 134/85, HR 66, RR 15, weight 169.8, temperature 98.3, oxygen saturation at room air 98 % . HEENT: PERRLA, EOMI.low position of soft palate, Mallapati 4 . NECK: Supple. No JVD. LUNGS: Clear to percussion and to auscultation. Good air exchange. No wheezing or rhonchi. HEART: S1, S2 regular. ABDOMEN: Soft and nontender.[] EXTREMITIES: No clubbing or cyanosis. MARKET RISK SPECIALIST: Awake, alert, and oriented x3. No focal deficit. Impressions: 1. Obstructive sleep apnea-hypopnea syndrome. Patient demonstrated great compliance with treatment, benefiting from treatment. CPAP unit is old. Snoring and sleepiness while using CPAP every night. 2. Hyperlipidemia. 3. BPH. 4. History of PVCs. Plan: 1. Continue using PAP equipment every night for the whole night. Prescription to replace CPAP unit to APAP with pressure 6-10 cm of water. 2. To change air filter at least 1-2 times per month. 3. PAP unit should stay lower then position of the head. 4. Advised patient to remove all remaining water from humidifier canister daily and make it dry after each usage. Refill canister with fresh distilled water before each usage. 5. Sleep hygiene with regular time in bed for at least 8 hours. 6. Precautions related to driving. No driving if feel any sleepiness. 7. I will maintain prescription for PAP supplies including mask, tube, filters. 8. Follow up visit in 1-2 months after patient received new CPAP unit. 9. Watching weight. Thank you very much for allowing me to participate in the management of your patient. Miguel Gonzalez MD, PhD, FAASM. Diplomat of [place] Board of Sleep Medicine, Sleep Medicine Board by [place] Board of Internal Medicine Algorithm Developer of [facility] [place]
== END ==
LOC: 3 N SLEEP 10:24
PROVIDERS: ATTEND Internal Medicine
DX: G47.33 Obstructive sleep apnea (adult) (pediatric) (principal); E78.5 Hyperlipidemia, unspecified; N40.0 Benign prostatic hyperplasia without lower urinary tract symptoms; Z86.79 Personal history of other diseases of the circulatory system; Z99.89 Dependence on other enabling machines and devices
CPT/HCPCS: 99212

== ENCOUNTER → 2023-09-11 | Outpatient (CLI) | payer MEDICARE, OTHER ==
[2023-09-11 10:36] VITALS: BP 123/83; PULSE 86; RESP 16; TEMP 98.1
--- NOTE | 2023-09-11 11:48 | P.PROGSL ---
Subjective DATE: 09/11/2023 FOLLOW UP VISIT. Patient with obstructive sleep apnea hypopnea syndrome return to sleep center for follow-up visit. Information from previous visit have been reviewed. Patient is using PAP equipment every night for the whole night, getting PAP supplies in time. Patient has occasional snoring on CPAP according to his . The patient does not have significant problems with the mask, PAP unit and humidification. [place] sleepiness scale is increased to 16. I checked information from PAP unit. PAP unit pressure 6-11, average 10.5 cm H2O. Usage is 100% for more then 4 hours, average 7 hours per night. Leak is 7.0 l/m, which is in acceptable range. Apnea Hypopnea Index is slightly increased to 6.3. MEDICATIONS: Please see below During physical exam: GENERAL: A pleasant patient without any distress. VITAL SIGNS: Please see below, weight 177 pounds. HEENT: PERRLA, EOMI.low position of soft palate, Mallapati 4 . NECK: Supple. No JVD. LUNGS: Clear to percussion and to auscultation. Good air exchange. No wheezing or rhonchi. HEART: S1, S2 regular. ABDOMEN: Soft and nontender.[] EXTREMITIES: No clubbing or cyanosis. TREE SURGEON: Awake, alert, and oriented x3. No focal deficit. Impressions: 1. Obstructive sleep apnea-hypopnea syndrome. Patient demonstrated great compliance with treatment, benefiting from treatment. Patient has occasional snoring, apnea hypopnea index slightly increased to 6.3. 2. BPH. 3. Hyperlipidemia. 4. History of PVCs. Plan: 1. Continue using PAP equipment every night for the whole night. I changed pressure in CPAP unit to the range 6-13 cm of water. 2. To change air filter at least 1-2 times per month. 3. PAP unit should stay lower then position of the head. 4. Advised patient to remove all remaining water from humidifier canister daily and make it dry after each usage. Refill canister with fresh distilled water before each usage. 5. Sleep hygiene with regular time in bed for at least 8 hours. 6. Precautions related to driving. No driving if feel any sleepiness. 7. I will maintain prescription for PAP supplies including mask, tube, filters. 8. Follow up visit in 4-6 months or earlier if patient has any problems. 9. Watching weight. Thank you very much for allowing me to participate in the management of your patient. Miguel Gonzalez MD, PhD, FAASM. Diplomat of [place] Board of Sleep Medicine, Sleep Medicine Board by [place] Board of Internal Medicine Binding Bench Worker of [facility] [place] Objective - Vital Signs Vital Signs: Vital Signs Temp 98.1 F 09/11/23 10:35 Pulse 86 09/11/23 10:35 Resp 16 09/11/23 10:35 BP 123/83 09/11/23 10:35 Pulse Ox 97 09/11/23 10:35 FiO2 Intake & Output 09/10/23 09/11/23 09/11/23 18:59 06:59 18:59 Weight 80.286 kg Home Medications: Home Medications Medication Instructions Recorded Confirmed Type Aspirin 81 mg PO DAILY #1 chewable 11/05/17 09/11/23 Rx Atorvastatin Calcium [Lipitor] 20 mg PO DAILY #30 tab 11/05/17 09/11/23 Rx Finasteride [Proscar] 5 mg DAILY 09/11/23 09/11/23 History Silodosin 8 mg PO DAILY 09/11/23 09/11/23 History Vit B Comp/Folic/Choline/Inosi See Rx Instructions .ROUTE .COMPLEX 09/11/23 09/11/23 History [Super B-50 Complex Capsule]
== END ==
LOC: 3 N SLEEP 09:53
PROVIDERS: ATTEND Internal Medicine
DX: G47.33 Obstructive sleep apnea (adult) (pediatric) (principal); I49.3 Ventricular premature depolarization; N40.0 Benign prostatic hyperplasia without lower urinary tract symptoms; E78.5 Hyperlipidemia, unspecified; Z79.82 Long term (current) use of aspirin; Z99.89 Dependence on other enabling machines and devices
CPT/HCPCS: 99212

== ENCOUNTER → 2023-10-14 | Outpatient (CLI) | payer MEDICARE ==
[2023-10-14 16:09] LABS: ALT 33 U/L (10-49); AST 27 U/L (14-35); Chol/HDL Ratio 3.31 Ratio; LDL Cholesterol,Calculated 99.3 mg/dL (0.0-131.0); VLDL Calculation 14.38 mg/dL (5.00-40.00)
== END | disposition home or self-care (01) ==
LOC: LABWHC1 08:57
PROVIDERS: ATTEND Internal Medicine Interventional Cardiology
DX: E78.2 Mixed hyperlipidemia (principal)
CPT/HCPCS: 36415; 80061; 84450; 84460

== ENCOUNTER → 2024-01-07 | Outpatient (CLI) | payer MEDICARE ==
[2024-01-07 11:22] VITALS: BP 137/93; PULSE 58; RESP 16; TEMP 97.9
--- NOTE | 2024-01-07 12:16 | P.PROGSL ---
Subjective DATE: 01/07/2024 FOLLOW UP VISIT. Patient with obstructive sleep apnea hypopnea syndrome return to sleep center for follow-up visit. Information from previous visit have been reviewed. Patient is using PAP equipment every night for the whole night, getting PAP supplies in time. The patient does not have significant problems with the mask, PAP unit and humidification. [place] sleepiness scale is slightly increased to 11. I checked information from PAP unit. PAP unit pressure 6-13, average 9.4 cm H2O. Usage is 100% for more then 4 hours, average 8.1 hours per night. Leak is 14 l/m, which is in acceptable range. Apnea Hypopnea Index is 0.7, which is normal. Significant improvements comparing with the previous visit, when pressure was adjusted. According to patient's sometimes he snores. MEDICATIONS have been reviewed, please see below. During physical exam: GENERAL: A pleasant patient without any distress. VITAL SIGNS: Please see below, weight is 177 pounds lbs. HEENT: PERRLA, EOMI.low position of soft palate, [place] 4 . NECK: Supple. No JVD. LUNGS: Clear to percussion and to auscultation. Good air exchange. No wheezing or rhonchi. HEART: S1, S2 regular. ABDOMEN: Soft and nontender.[] EXTREMITIES: No clubbing or cyanosis. INTERNATIONAL LOGISTICS ANALYST: Awake, alert, and oriented x3. No focal deficit. Impressions: 1. Obstructive sleep apnea-hypopnea syndrome. Patient demonstrated great compliance with treatment, benefiting from treatment. 2. Hyperlipidemia. 3. History of PVCs. 4. Occasional snoring with CPAP. 5. BPH. I slightly increased pressure in CPAP unit to the level 6-14 cm of water AutoPAP to prevent snoring. Plan: 1. Continue using PAP equipment every night for the whole night. 2. Sleep hygiene with regular time in bed for at least 7.5-8 hours 3. PAP unit should stay lower then position of the head. 4. Advised patient to remove all remaining water from humidifier canister daily and make it dry after each usage. Refill canister with fresh distilled water before each usage. 5. Watching weight. 6. Precautions related to driving. No driving if feel any sleepiness. 7. I will maintain prescription for PAP supplies including mask, tube, filters. 8. Follow up visit in 8 months or earlier if patient has any problems. Thank you very much for allowing me to participate in the management of your patient. Miguel Gonzalez MD, PhD, FAASM. Diplomat of [place] [employer], Sleep Medicine Board by [place] [employer] Production Operations Inspector of [facility] cc: Trevin Townsend DO Objective - Vital Signs Vital Signs: Vital Signs Temp 97.9 F 01/07/24 11:20 Pulse 58 L 01/07/24 11:20 Resp 16 01/07/24 11:20 BP 137/93 01/07/24 11:20 Pulse Ox 97 01/07/24 11:20 FiO2 Intake & Output 01/06/24 01/07/24 01/07/24 18:59 06:59 18:59 Weight 80.286 kg Home Medications: Home Medications Medication Instructions Recorded Confirmed Type Aspirin 81 mg PO DAILY #1 chewable 11/05/17 01/07/24 Rx Atorvastatin Calcium [Lipitor] 20 mg PO DAILY #30 tab 11/05/17 01/07/24 Rx Finasteride [Proscar] 5 mg DAILY 09/11/23 01/07/24 History Silodosin 8 mg PO DAILY 09/11/23 01/07/24 History Vit B Comp/Folic/Choline/Inosi See Rx Instructions .ROUTE .COMPLEX 09/11/23 01/07/24 History [Super B-50 Complex Capsule]
== END | disposition home or self-care (01) ==
LOC: 3 N SLEEP 10:47
PROVIDERS: ATTEND Internal Medicine
CPT/HCPCS: 99212